=== PATIENT | male | born 1955 | race Caucasian/White ===

== ENCOUNTER 2018-08-26 13:18 | Emergency (ER) | payer MEDICAID ==
[~2018-08-26] VITALS: Ht 162.6 cm; Wt 63.5 kg
--- NOTE | 2018-08-26 13:23 | NUR ---
PT TIGRE FROM HOME TO ED BED 04. PER REPORT, SYNCOPAL EPISODE WHILE AT HOME AND WAS NOTED TO BE HYPOTENSIVE. PT PRESENTS W/ L EYEBROW LACERATION. ICELANDIC SPEAKING. PLACED ON MONITOR. AWAITING MD BROWN.
--- NOTE | 2018-08-26 13:27 | NUR ---
DR NICHOLSON AT BEDSIDE FOR EVAL.
[2018-08-26] MEDS ORDERED: IV NS 0.9% 1,000 ML BAG IV ONE ×2 (13:30→14:30)
[2018-08-26 13:44] LABS: BASOPHILS # (AUTO) 0.1 /CMM (0.0-0.2); BASOPHILS % (AUTO) 0.7 % (0.0-2.0); HEMATOCRIT 40 % (39-51); HEMOGLOBIN 13.5 g/dL (13.5-17.5); LYMPHOCYTES # (AUTO) 1.5 /CMM (0.8-4.8); LYMPHOCYTES % (AUTO) 18.3 % (20.0-44.0); MEAN CORPUSCULAR HGB CONC 34 g/dl (31.0-36.0); MEAN CORPUSCULAR VOLUME 91 fL (80-96); MONOCYTES # (AUTO) 0.8 /CMM (0.1-1.30); MONOCYTES % (AUTO) 9.9 % (2.0-12.0); NEUTROPHILS # (AUTO) 5.6 /CMM (1.8-8.9); NEUTROPHILS % (AUTO) 70.1 % (43.0-81.0); PLATELET COUNT (AUTO) 147 /CMM (150-450); RED BLOOD CELL COUNT(AUTO) 4.41 MIL/uL (4.5-6.0)
--- NOTE | 2018-08-26 13:44 | NUR ---
RADIOLOGY AT BEDSIDE FOR CHEST XRAY.
--- NOTE | 2018-08-26 13:54 | NUR ---
PT TO RADIOLOGY FOR HEAD CT SCAN VIA [facility].
[2018-08-26 14:00] LABS: CHLORIDE 107 mmol/L (98-107); POTASSIUM 3.3 mmol/L (3.5-5.1); SODIUM SERUM 140 mmol/L (136-145)
[2018-08-26 14:06] LABS: CALCIUM, SERUM 8.2 mg/dL (8.5-10.1); CARBON DIOXIDE 23 mmol/L (21-32); CREATININE 1.1 mg/dL (0.6-1.3); GLUCOSE 111 mg/dL (74-106); UREA NITROGEN, BLOOD 14 mg/dL (7-18)
[2018-08-26 14:12] LABS: BILIRUBIN,DIRECT 0.2 mg/dL (0.0-0.2)
[2018-08-26 14:13] LABS: ALANINE AMINOTRANSFERASE 7 U/L (12-78); ALBUMIN 3.1 g/dL (3.4-5.0); ALKALINE PHOSPHATASE 74 U/L (46-116); ASPARTATE AMINOTRANSFERASE 23 U/L (15-37); TOTAL PROTEIN, SERUM 5.9 g/dL (6.4-8.2)
[2018-08-26] MEDS ORDERED: LIDOCAINE 1%-EPI 1:100,000 20 ML VIAL TP ONE (14:30)
[2018-08-26] MEDS ORDERED: LORA2TAB PO (14:43)
[2018-08-26] MEDS ORDERED: OMEP40CA37 PO (14:43)
[2018-08-26] MEDS ORDERED: CARB-93 PO (14:43)
[2018-08-26 15:13] LABS: APPEARANCE,URINE CLEAR (CLEAR); BILIRUBIN,URINE NEGATIVE (NEGATIVE); BLOOD, URINE NEGATIVE Ery/uL (NEGATIVE); KETONES,URINE TRACE (NEGATIVE); LEUKOCYTE ESTERASE ,URINE NEGATIVE (NEGATIVE); NITRITE, URINE NEGATIVE (NEGATIVE); PROTEIN,URINE TRACE mg/dl (NEGATIVE); UGLUCOSE NEGATIVE (NEGATIVE)
[2018-08-26 15:14] LABS: COLOR,URINE DARK YELLOW (YELLOW)
[2018-08-26 15:23] LABS: RBC,URINE 0-2 /HPF (0-2); WBC,URINE 0-2 /HPF (0-3)
[2018-08-26 15:24] LABS: BACTERIA,URINE Few /HPF (None Seen); CALCIUM OXALATE CRYSTALS,UR Few /HPF (None Seen); COARSE GRANULAR CASTS,URINE Few /LPF (None Seen); HYALINE CASTS, URINE Few /LPF (None Seen); MUCUS,URINE Moderate /LPF (None Seen); SQUAMOUS EPITHELIAL CELL,UR Few /HPF (None Seen)
--- NOTE | 2018-08-26 16:03 | NUR ---
PT ACCEPTED TO [facility], FAXED F[facility]HEET AND CLINICALS TO [phone]. NUMBER TO GIVE REPORT IS [phone]. THEY WILL CALL BACK WITH ROOM NUMBER.
--- NOTE | 2018-08-26 16:18 | NUR ---
CALLED [facility] FOR TRANSPORT TO [facility], ETA 1900, TRIP #[id number]
--- NOTE | 2018-08-26 16:54 | NUR ---
REPORT GIVEN TO PAMELA DICKENS. PT AWAITING TRANSPORT AMBULANCE.
--- NOTE | 2018-08-26 17:01 | NUR ---
PT GOING TO ROOM 612-B AT [facility].
--- NOTE | 2018-08-26 19:32 | NUR ---
REPORT GIVEN TO PETE TSAI MICHAEL.
[2018-08-26 19:59] VITALS: BP 126/80
--- NOTE | 2018-08-26 20:14 | NUR ---
pt was transferred in stable condition [facility].
== END 2018-08-26 20:20 ==
LOC: ER 13:24
DX: S01.81XA Laceration without foreign body of other part of head, initial encounter (principal); R55 Syncope and collapse; E87.2 Acidosis; F20.9 Schizophrenia, unspecified; G20 Parkinson's disease; W18.39XA Other fall on same level, initial encounter; Y93.89 Activity, other specified; Y92.89 Other specified places as the place of occurrence of the external cause; Y99.8 Other external cause status
CPT/HCPCS: 12011; 36415; 70450; 71045; 80048; 80076; 81001; 83605 ×2; 84484; 85025; 85730; 86850; 87040 ×2; 87086; 93005; 96360; 96361; 99285; A6402; A6403; J7030 ×2; 81000-TC